=== PATIENT | male | born 1945 | race Caucasian/White ===

== ENCOUNTER 2017-12-05 04:26 | Inpatient (IN) ==
[2017-12-05] MEDS ORDERED: ALBUTEROL/IPRATROPIUM 3 ML NEB RESP TX STA (04:40)
[2017-12-05] MEDS ORDERED: FUROSEMIDE 40 MG/4 ML VIAL IV STA (04:47)
[2017-12-05 04:50] LABS: Basophils # 0.1 10*3/uL (0.0-0.2); Basophils % 0.6 % (0.0-0.8); Eosinophils # 0.3 10*3/uL (0.0-0.87); Eosinophils % 2.4 % (0.00-10.9); Hematocrit 39.9 VOL% (42.0-52.0); Hemoglobin 12.8 GM/DL (14.0-18.0); Immature Granulocytes % 0.3 %; Immature Granulocytes Absolute 0.04 #; Lymphocytes # 0.9 10*3/uL (1.4-4.0); Lymphocytes % 7.5 % (21.2-54.2); Mean Corpuscular HGB Conc 32.1 GM/DL (32-36); Mean Corpuscular Hemoglobin 29 PG (27-34); Mean Corpuscular Volume 90.1 FL (87-102); Mean Platelet Volume 9.8 FL (9.6-12.0); Monocytes # 0.8 10*3/uL (0.11-0.8); Monocytes % 6.1 % (1.7-12.7); Neutrophils # 10.3 10*3/uL (1.4-7.4); Neutrophils % 83.1 % (38.7-73.9); Platelet Count 429 T/CUMM (130-400); Red Blood Count 4.43 MC/CUMM (3.8-5.5); Red Cell Distribution Width 14.4 % (9.3-17.3); White Blood Count 12.4 T/CUMM (4-12)
[2017-12-05 05:10] LABS: Albumin 3.4 G/DL (3.4-5.0); Bilirubin,Total 0.8 MG/DL (0.2-1.0); Calcium 8.2 MG/DL (8.5-10.1); Osmolality,Calculated 286.3 MOS/KG (273-304); Potassium 3.2 MMOL/L (3.5-5.1); Total Protein 7.8 G/DL (6.4-8.3)
[2017-12-05 05:13] LABS: Troponin I Only 0.05 NG/ML (0.00-0.045)
[2017-12-05] MEDS ORDERED: ENOXAPARIN 100 MG/ML SYRINGE SUBCUT STA (05:33)
[2017-12-05] MEDS ORDERED: ONDANSETRON 4 MG/2 ML VIAL IV PRN (09:11)
[2017-12-05] MEDS ORDERED: DEXTROSE 50% 25 GM/50 ML VIAL IV PRN (09:11)
[2017-12-05] MEDS ORDERED: MORPHINE 4 MG/1 ML VIAL IV PRN (09:11)
[2017-12-05] MEDS ORDERED: GLUCAGON 1 MG VIAL IM PRN (09:11)
[2017-12-05] MEDS: DOCUSATE SODIUM 100 MG CAPSULE PO SCH ×2 (09:34→21:05)
[2017-12-05] MEDS: ASPIRIN EC 81 MG TABLET PO SCH (09:34)
[2017-12-05] MEDS: PANTOPRAZOLE 40 MG TABLET PO SCH (09:34)
[2017-12-05 10:12] LABS: Risk Ratio 2.6; Thyroid Stimulating Hormone 5.83 uIU/ml (0.358-3.74); VLDL CHOLESTEROL 28.8 MG/DL
[2017-12-05] MEDS: INSULIN REGULAR 100 UNIT/ML SUBCUT SCH ×2 (11:30→17:58)
[2017-12-05] MEDS ORDERED: MAGNESIUM SULF RIDER 4 GM in PREMIX 1 EACH IV PRN (11:49)
[2017-12-05] MEDS ORDERED: MAGNESIUM SULF RIDER 2 GM in PREMIX 1 EACH IV PRN (11:49)
[2017-12-05] MEDS: LOSARTAN 50 MG TABLET PO SCH (13:08)
[2017-12-05] MEDS: SPIRONOLACTONE 50 MG TABLET PO SCH (13:08)
[2017-12-05] MEDS: POTASSIUM CHLORIDE 20 MEQ TABLET PO PRN ×4 (13:08→19:12)
[2017-12-05 13:40] LABS: Troponin I Only 0.059 NG/ML (0.00-0.045)
[2017-12-05] MEDS: FUROSEMIDE 40 MG/4 ML VIAL IV SCH (17:17)
[2017-12-05 20:58] LABS: Troponin I Only 0.054 NG/ML (0.00-0.045)
[2017-12-05] MEDS ORDERED: CARVEDILOL 3.125 MG TABLET PO SCH (21:00)
[2017-12-05] MEDS: GABAPENTIN 300 MG CAPSULE PO SCH (21:05)
[2017-12-06] MEDS: FUROSEMIDE 40 MG/4 ML VIAL IV SCH ×2 (00:30→05:45)
[2017-12-06] MEDS: INSULIN REGULAR 100 UNIT/ML SUBCUT SCH ×4 (00:30→18:41)
[2017-12-06 07:03] LABS: Basophils # 0.1 10*3/uL (0.0-0.2); Basophils % 0.6 % (0.0-0.8); Eosinophils # 0.4 10*3/uL (0.0-0.87); Eosinophils % 4.1 % (0.00-10.9); Hematocrit 38.6 VOL% (42.0-52.0); Hemoglobin 12.3 GM/DL (14.0-18.0); Immature Granulocytes % 0.2 %; Immature Granulocytes Absolute 0.02 #; Lymphocytes # 1.3 10*3/uL (1.4-4.0); Lymphocytes % 13.9 % (21.2-54.2); Mean Corpuscular HGB Conc 31.9 GM/DL (32-36); Mean Corpuscular Hemoglobin 29 PG (27-34); Mean Corpuscular Volume 90.6 FL (87-102); Mean Platelet Volume 10.3 FL (9.6-12.0); Monocytes # 0.8 10*3/uL (0.11-0.8); Monocytes % 8.3 % (1.7-12.7); Neutrophils # 6.9 10*3/uL (1.4-7.4); Neutrophils % 72.9 % (38.7-73.9); Platelet Count 451 T/CUMM (130-400); Red Blood Count 4.26 MC/CUMM (3.8-5.5); Red Cell Distribution Width 14.6 % (9.3-17.3); White Blood Count 9.5 T/CUMM (4-12)
[2017-12-06 07:18] LABS: Calcium 8.4 MG/DL (8.5-10.1); Osmolality,Calculated 288.1 MOS/KG (273-304); Potassium 3.7 MMOL/L (3.5-5.1)
[2017-12-06] MEDS ORDERED: FUROSEMIDE 40 MG/4 ML VIAL IV SCH (09:00)
[2017-12-06] MEDS: ENOXAPARIN 40 MG/0.4 ML SYRINGE SUBCUT SCH (09:04)
[2017-12-06] MEDS: FUROSEMIDE 40 MG TABLET PO SCH ×2 (09:04→16:25)
[2017-12-06] MEDS: LOSARTAN 50 MG TABLET PO SCH (09:05)
[2017-12-06] MEDS: PANTOPRAZOLE 40 MG TABLET PO SCH (09:05)
[2017-12-06] MEDS: DOCUSATE SODIUM 100 MG CAPSULE PO SCH ×2 (09:05→21:10)
[2017-12-06] MEDS: SPIRONOLACTONE 50 MG TABLET PO SCH (09:05)
[2017-12-06] MEDS: POTASSIUM CHLORIDE 20 MEQ TABLET PO PRN (09:05)
[2017-12-06] MEDS: ASPIRIN EC 81 MG TABLET PO SCH (09:06)
[2017-12-06] MEDS: GABAPENTIN 300 MG CAPSULE PO SCH (21:09)
[2017-12-06] MEDS: CARVEDILOL 6.25 MG TABLET PO SCH (21:09)
[2017-12-07] MEDS: INSULIN REGULAR 100 UNIT/ML SUBCUT SCH ×2 (01:04→08:17)
[2017-12-07 05:58] LABS: Basophils # 0.1 10*3/uL (0.0-0.2); Basophils % 0.7 % (0.0-0.8); Eosinophils # 0.5 10*3/uL (0.0-0.87); Eosinophils % 5.5 % (0.00-10.9); Hematocrit 37.2 VOL% (42.0-52.0); Hemoglobin 11.7 GM/DL (14.0-18.0); Immature Granulocytes % 0.2 %; Immature Granulocytes Absolute 0.02 #; Lymphocytes # 1.3 10*3/uL (1.4-4.0); Lymphocytes % 15.4 % (21.2-54.2); Mean Corpuscular HGB Conc 31.5 GM/DL (32-36); Mean Corpuscular Hemoglobin 29 PG (27-34); Mean Corpuscular Volume 91.4 FL (87-102); Mean Platelet Volume 10.1 FL (9.6-12.0); Monocytes # 0.8 10*3/uL (0.11-0.8); Monocytes % 10.1 % (1.7-12.7); Neutrophils # 5.6 10*3/uL (1.4-7.4); Neutrophils % 68.1 % (38.7-73.9); Platelet Count 424 T/CUMM (130-400); Red Blood Count 4.07 MC/CUMM (3.8-5.5); Red Cell Distribution Width 14.8 % (9.3-17.3); White Blood Count 8.2 T/CUMM (4-12)
[2017-12-07 06:26] LABS: Potassium 3.7 MMOL/L (3.5-5.1)
[2017-12-07 07:49] VITALS: BP 126/59
[2017-12-07] MEDS: DOCUSATE SODIUM 100 MG CAPSULE PO SCH (08:43)
[2017-12-07] MEDS: CARVEDILOL 6.25 MG TABLET PO SCH (08:44)
[2017-12-07] MEDS: LOSARTAN 50 MG TABLET PO SCH (08:45)
[2017-12-07] MEDS: SPIRONOLACTONE 50 MG TABLET PO SCH (08:46)
[2017-12-07] MEDS: PANTOPRAZOLE 40 MG TABLET PO SCH (08:46)
[2017-12-07] MEDS: FUROSEMIDE 40 MG TABLET PO SCH (08:47)
[2017-12-07] MEDS: ENOXAPARIN 40 MG/0.4 ML SYRINGE SUBCUT SCH (08:47)
[2017-12-07] MEDS: ASPIRIN EC 81 MG TABLET PO SCH (08:47)
== END 2017-12-07 11:47 | disposition home or self-care (01) | DRG 291 ==
LOC: EDUNIT# → EDBD → N.ED 04:26 → N.EDINP 05:52 → SUATTDRO 05:52 → N.2E 08:49
PROVIDERS: ADMIT Internal Medicine; ATTEND Internal Medicine